=== PATIENT | female | born 1960 | race Caucasian/White ===

== ENCOUNTER 2016-07-02 10:57 | Emergency (ER) | payer SELFPAY ==
[2016-07-02 11:09] VITALS: BP 134/57
[2016-07-02] MEDS ORDERED: Eye Irrigation Solution 30 ML BOTTLE ONE (11:13)
[2016-07-02] MEDS ORDERED: Fluorescein Sodium TOPICAL* 1 MG TEST ONE (11:13)
[2016-07-02] MEDS ORDERED: Tetracaine 0.5% OPTH.SOL 4 ML* 1 DROP BTL ONE (11:13)
--- NOTE | 2016-07-02 11:43 | UC ---
Eye Complaint HPI - HPI Summary HPI Summary: CONTACT LENS STUCK IN LEFT EYE, IRRITATING LEFT EYE, UNABLE TO REMOVE - History of Current Complaint Chief Complaint: UCEye Stated Complaint: LEFT EYE COMPLAINT Time Seen by Provider: 07/02/16 11:16 Hx Obtained From: Patient, Family/Dramatic Art Teacher Onset/Duration: Sudden Onset, Lasting Hours, Still Present Location of Injury: Conjunctiva, Globe Character: Dull, Foreign Body Sensation Aggravating Factor(s): Contact Lens Alleviating Factor(s): Nothing Associated Signs And Symptoms: Positive: Drainage (Clear) Related History: Foreign Body - Risk Factors Penetrating Injury Risk Factor: Negative Globe Rupture Risk Factors: Negative Acute Glaucoma Risk Factors: Negative Optic Artery Occlusion Risk Factors: Negative - Allergies/Home Medications Allergies/Adverse Reactions: Allergies Allergy/AdvReac Type Severity Reaction Status Date / Time No Known Allergies Allergy Verified 07/02/16 11:09 Home Medications: Home Medications Atenolol TAB* [Tenormin TAB* 25 MG] 25 mg PO DAILY 07/02/16 [History Confirmed 07/02/16] Citalopram TAB* [CeleXA TAB*] 20 mg PO DAILY 07/02/16 [History Confirmed ] Hydroxychloroquine TAB* [Plaquenil TAB*] 200 mg PO BID 07/02/16 [History Confirmed 07/02/16] Ibuprofen TAB* [Motrin TAB* 800 MG] 800 mg PO ONCE 07/02/16 [History Confirmed 07/02/16] Rosuvastatin (NF) [Crestor (NF)] 10 mg PO DAILY 07/02/16 [History Confirmed ] PMH/Surg Hx/FS Hx/Imm Hx Previously Healthy: Yes Cardiovascular History Of: Reports: Hypertension - Surgical History Surgical History: Yes Surgery Procedure, Year, and Place: tubal. hysterectomy. right carpal tunnel. arthroscopy both knees. eyes as a child - Family History Known Family History: Negative: Diabetes - Social History Occupation: Employed Full-time Lives: With Family Alcohol Use: Occasionally Substance Use Type: None Smoking Status (MU): Never Smoked Tobacco - Immunization History Most Recent Influenza Vaccination: [id number] Review of Systems Constitutional: Negative Skin: Negative Eyes: Drainage, Other - CONTECT LENS IN EYE ENT: Negative Respiratory: Negative Cardiovascular: Negative Gastrointestinal: Negative Genitourinary: Negative Motor: Negative Neurovascular: Negative Musculoskeletal: Negative Neurological: Negative Psychological: Negative All Other Systems Reviewed And Are Negative: Yes Physical Exam Triage Information Reviewed: Yes Appearance: Well-Appearing, No Pain Distress, Well-Nourished Vital Signs: Initial Vital Signs Temp 98.2 F 07/02/16 11:03 Pulse 67 07/02/16 11:03 Resp 16 07/02/16 11:03 BP 134/57 07/02/16 11:03 Pulse Ox 100 07/02/16 11:03 Eyes: Positive: Other: - CONTECT LENS SUCESSFULLY REMOVED; COREAL ABRASION/ FLUOROSCEIN UPTAKE AT 1 OCLOCK TO 7 OCLOCK ENT Exam: Normal ENT: Positive: Normal ENT inspection, Hearing grossly normal, Pharynx normal, TMs normal Dental Exam: Normal Neck exam: Normal Neck: Positive: Supple, Nontender, No Lymphadenopathy Respiratory Exam: Normal Respiratory: Positive: Chest non-tender, Lungs clear, Normal breath sounds, No respiratory distress, No accessory muscle use Cardiovascular Exam: Normal Cardiovascular: Positive: RRR Abdominal Exam: Normal Abdomen Description: Positive: Nontender, No Organomegaly Musculoskeletal Exam: Normal Musculoskeletal: Positive: Strength Intact Neurological Exam: Normal Psychological Exam: Normal Skin Exam: Normal Eye Complaint Course/Dx - Differential Dx/Diagnosis Differential Diagnosis/HQI/PQRI: Corneal Abrasion, Foreign Body Provider Diagnoses: CONTACT LENS SUCCESSFULLY REMOVED FROM LEFT EYE. CORNEAL ABRASION LEFT EYE Discharge - Discharge Plan Condition: Stable Disposition: HOME Prescriptions: Tobramycin 0.3% OPHTH.CARLOS* 1 drop LEFT EYE Q4H #1 btl Patient Education Materials: Corneal Abrasion (ED), Eye Foreign Body (ED) Referrals: Keke Horner PA [Primary Care Provider] -
== END 2016-07-02 11:46 | disposition home or self-care (01) ==
LOC: UCCORT 10:57
DX: H18.822 Corneal disorder due to contact lens, left eye (principal)
CPT/HCPCS: 99212; A9270-GY; G0463

== ENCOUNTER 2018-06-11 16:06 | Emergency (ER) | payer MEDICAID ==
[2018-06-11 16:20] VITALS: BP 156/76
--- NOTE | 2018-06-11 16:29 | UC ---
General HPI - HPI Summary HPI Summary: BOIL ABOVE R EAR WHERE HER EYE GLASS ARM RUBS X 10 DAYS. 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 NO FEVER - History of Current Complaint Chief Complaint: UCSkin Stated Complaint: SKIN CONCERN Time Seen by Provider: 06/11/18 16:19 Hx Obtained From: Patient Onset/Duration: Gradual Onset Timing: Constant Pain Intensity: 8 Associated Signs & Symptoms: Negative: Fever - Allergy/Home Medications Allergies/Adverse Reactions: Allergies Allergy/AdvReac Type Severity Reaction Status Date / Time No Known Allergies Allergy Verified 06/11/18 16:16 Home Medications: Home Medications Ibuprofen TAB* [Motrin TAB* 800 MG] 1 tab BID PRN 06/11/18 [History Confirmed ] PMH/Surg Hx/FS Hx/Imm Hx Endocrine History: Dyslipidemia Cardiovascular History: Hypertension Psychological History: Depression - Surgical History Surgical History: Yes Surgery Procedure, Year, and Place: tubal. hysterectomy. right carpal tunnel. arthroscopy both knees; LEFT KNEE X2. eyes as a child - Family History Known Family History: Negative: Diabetes - Social History Alcohol Use: Occasionally Substance Use Type: None Smoking Status (MU): Never Smoked Tobacco - Immunization History Most Recent Influenza Vaccination: [id number] Review of Systems All Other Systems Reviewed And Are Negative: Yes Constitutional: Positive: Negative Eyes: Positive: Negative ENT: Positive: Negative Respiratory: Positive: Negative Cardiovascular: Positive: Negative Gastrointestinal: Positive: Negative Genitourinary: Positive: Negative Motor: Positive: Negative Neurovascular: Positive: Negative Musculoskeletal: Positive: Negative Neurological: Positive: Negative Psychological: Positive: Negative Physical Exam Triage Information Reviewed: Yes Appearance: Well-Appearing Vital Signs: Initial Vital Signs Temp 98.1 F 06/11/18 16:17 Pulse 74 06/11/18 16:17 Resp 20 06/11/18 16:17 BP 156/76 06/11/18 16:17 Pulse Ox 99 06/11/18 16:17 Vital Signs Reviewed: Yes Eyes: Positive: Conjunctiva Clear ENT: Positive: Normal ENT inspection Neck: Positive: Supple, Nontender, No Lymphadenopathy Respiratory: Positive: Lungs clear, Normal breath sounds Cardiovascular: Positive: RRR, No Murmur Abdomen Description: Positive: Nontender Bowel Sounds: Positive: Present Musculoskeletal: Positive: ROM Intact Neurological: Positive: Alert Psychological: Positive: Age Appropriate Behavior Skin Exam: Normal, Other - 3CM AREA OF ERYTHEMA WITH MIDL SWELLING ABOVE R EAR WITH A CENTRAL BLACKHEAD. ARE VERY TENDER TO TOUCH AND MIDL CENTRAL FLUCTUANCE. Course/Dx - Course Course Of Treatment: PROCEDURE: TIME OUT DONE. SITE PREP BETADINE. VERY SMALL AREA INJECTED WITH 1% LIDOCAINE USING A 30G NEEDLE(AREA LIMITED BY PT TOLERANCE) . TIP #11 BLADE USED TO MAKE A SMALL STAB INCISION(LIMITED BY LOCAL ANESTHETIC) . SMALL BUBBLE OF PUSS DRAINED. CULTURE OBTAINED. SITE IRRIGATED WITH STERILE NACL. SMALL IODOFORM GAUZE PACK PLACED. ONLY SCANT BLEEDING. STERILE TECHNIQUE USED. LOCAL AREA STILL RED THUS WILL COVER WITH AN ANTIBIOTIC. - Diagnoses Provider Diagnosis: Abscess of scalp Discharge - Sign-Out/Discharge Documenting (check all that apply): Patient Departure All imaging exams completed and their final reports reviewed: No Studies - Discharge Plan Condition: Stable Disposition: HOME Prescriptions: Sulfamethox/Trimethoprim DS* [Bactrim DS 800/160 TAB*] 1 tab PO BID 10 Days #20 tab Patient Education Materials: Abscess Incision and Drainage (DC) Referrals: Keke Horner PA [Primary Care Provider] - Jude Brantley [Medical Doctor] - Additional Instructions: FOLLOW UP WITH YOUR PRIMARY CARE OR THE SURGEON IN 2 DAYS FOR A RECHECK. FOLLOW UP SOONER FOR ANY WORSENING. - Billing Disposition and Condition Condition: STABLE Disposition: Home - Attestation Statements Provider Attestation: I was available for consult. This patient was seen by the TRISTIAN. The patient was not presented to, seen by, or examined by me. -Baylee
[2018-06-11] MEDS ORDERED: Lidocaine 1% MPF* 2 ML VIAL INJ ONE (16:31)
[2018-06-11] MEDS ORDERED: Ibuprofen ADULT LIQ* 600 MG/30 ML UDC PO ONE (17:13)
== END 2018-06-11 17:24 | disposition home or self-care (01) ==
LOC: UCCORT 16:06
DX: L02.811 Cutaneous abscess of head [any part, except face] (principal); I10 Essential (primary) hypertension
CPT/HCPCS: 10060; 87070; 87205; 87640; 87641; 99212; A9270-GY; G0463

== ENCOUNTER 2021-07-13 10:32 | Observation (INO) ==
[~2021-07-13 10:32] MED LIST: Buffered Lidocaine 1% SYRIN 1 ml INTRADERM ONE; DiMENhydriNATE IV 50 mg/ml 1 ml VIAL IV PUSH PRN; Lactated Ringers 1000 ml BAG 1,000 ML IV SCH; Naloxone 0.4 mg VIAL 0.4 mg/ml 1 ml VIAL IV PRN; Propofol 10 MG/ML 20 ML BTL ONE; fentaNYL 100 mcg/2 ml 50 MCG/ML VIAL IV PRN
[2021-07-13] MEDS ORDERED: Lidocaine 2% PF 5 ML VIAL ONE ×2 (10:34→12:45)
[2021-07-13] MEDS ORDERED: Ketamine HCL 50 mg/ml 10 ml VIAL (500 MG) ONE (10:35)
[2021-07-13] MEDS ORDERED: ceFAZolin 2 GM in NS PREMIX 2 GM/100 ML BAG IVPB ONE (11:10)
[2021-07-13] MEDS ORDERED: ROPIVACAINE 5 MG/ML 30 ML BTL (0.5%) ONE (12:45)
[2021-07-13] MEDS ORDERED: Midazolam 2 mg/2 ml VIAL 1 mg/ml 2 ml VIAL (2 mg) ONE ×3 (12:45→14:45)
[2021-07-13] MEDS ORDERED: Dexmedetomidine 200 mcg/2 ml 2 ml VIAL (200 mcg) ONE (12:45)
[2021-07-13] MEDS ORDERED: Phenylephrine 40 mcg/mL 10mL (400mcg) SYRINGE ONE ×3 (13:44→15:16)
[2021-07-13] MEDS ORDERED: Sterile Water for Inj 10 ML ONE (13:54)
[2021-07-13] MEDS ORDERED: Glycopyrrolate IV 0.2 MG/ML 1 ML VIAL ONE (14:21)
[2021-07-13] MEDS ORDERED: Ropivacaine 5 MG/ML 20 ML VIAL 0.5% (100 MG) ONE (14:29)
[2021-07-13] MEDS ORDERED: Magnesium Hydroxide LIQ 30 ML UDC PO PRN (14:39)
[2021-07-13] MEDS ORDERED: Ondansetron 4 mg VIAL 2 MG/ML 2 ml VIAL IV PRN (14:39)
[2021-07-13] MEDS ORDERED: Ondansetron ODT 4 mg TAB 4 MG TAB PO PRN (14:39)
[2021-07-13] MEDS ORDERED: Lactulose 30 ml UDC PO PRN (14:39)
[2021-07-13] MEDS ORDERED: diPHENhydraMINE IV 50 MG/ML 1 ml VIAL (BENADRYL) IV PRN (14:39)
[2021-07-13] MEDS ORDERED: diPHENhydraMINE 25 mg TAB PO PRN (14:39)
[2021-07-13] MEDS ORDERED: Morphine 2 MG/ML SYRINGE IV PRN (14:39)
[2021-07-13] MEDS ORDERED: Ondansetron 4 mg VIAL 2 MG/ML 2 ml VIAL ONE (15:26)
[2021-07-13] MEDS: Magnesium Hydroxide LIQ 30 ML UDC PO SCH (21:10)
[2021-07-13] MEDS: DULoxetine DR 30 mg CAP PO SCH (21:10)
[2021-07-13] MEDS: ceFAZolin VIAL 1 GM in NS 0.9% 50 ML 50 ML IVPB SCH (22:06)
[2021-07-14] MEDS: Lactated Ringers 1000 ml BAG 1,000 ML IV SCH ×2 (04:10→06:17)
[2021-07-14] MEDS: ceFAZolin VIAL 1 GM in NS 0.9% 50 ML 50 ML IVPB SCH ×2 (06:02→13:33)
[2021-07-14 06:45] LABS: Hematocrit 32 % (35-47); Hemoglobin 11.3 g/dL (12.0-16.0); Mean Platelet Volume 8.7 fL (7.4-10.4); Platelet Count 150 10^3/uL (150-450)
[2021-07-14 06:59] LABS: Calcium 8.7 mg/dL (8.6-10.3); Potassium 4.6 mmol/L (3.5-5.0); eGFR CKD-EPI 92.6 (>60)
[2021-07-14] MEDS: DULoxetine DR 30 mg CAP PO SCH (08:21)
[2021-07-14] MEDS: Magnesium Hydroxide LIQ 30 ML UDC PO SCH (08:22)
[2021-07-14] MEDS ORDERED: Vitamin THERAPEUTIC TAB PO SCH (09:00)
[2021-07-14 12:12] VITALS: BP 117/73
== END 2021-07-14 15:38 | disposition home or self-care (01) ==
LOC: AA 10:32 → INTOOBSV 10:32 → SSU 17:46
PROVIDERS: ADMIT Orthopaedic Surgery Adult Reconstructive Orthopaedic Surgery; ATTEND Orthopaedic Surgery Adult Reconstructive Orthopaedic Surgery

== ENCOUNTER 2023-03-13 06:34 | Observation (INO) ==
[~2023-03-13 06:34] MED LIST changes: -DiMENhydriNATE IV 50 mg/ml 1 ml VIAL IV PUSH PRN; -Naloxone 0.4 mg VIAL 0.4 mg/ml 1 ml VIAL IV PRN; -Propofol 10 MG/ML 20 ML BTL ONE; -fentaNYL 100 mcg/2 ml 50 MCG/ML VIAL IV PRN
[2023-03-13] MEDS ORDERED: ceFAZolin 2 GM PREMIX 2 GM/50 ML BAG ONE (07:02)
[2023-03-13] MEDS ORDERED: Buffered Lidocaine 1% SYRIN 1 ml ONE (07:02)
[2023-03-13] MEDS ORDERED: ROPIVACAINE 5 MG/ML 30 ML BTL (0.5%) ONE (08:14)
[2023-03-13] MEDS ORDERED: fentaNYL 100 mcg/2 ml 50 MCG/ML VIAL ONE (08:14)
[2023-03-13] MEDS ORDERED: Midazolam 5 mg/5 ml VIAL 1 mg/ml 5 ml VIAL (5 mg) ONE (08:14)
[2023-03-13] MEDS ORDERED: Famotidine IV 10 MG/ML 2 ml VIAL (20 mg) IV ONE (08:24)
[2023-03-13] MEDS ORDERED: Famotidine IV 10 MG/ML 2 ml VIAL (20 mg) ONE (08:32)
[2023-03-13 08:43] LABS: Rapid COVID-19 Molecular Undetected (Undetected)
[2023-03-13] MEDS ORDERED: Ondansetron 4 mg VIAL 2 MG/ML 2 ml VIAL ONE (10:23)
[2023-03-13] MEDS ORDERED: Dexamethasone IV 4 MG/ML VIAL 1 ml VIAL ONE (10:23)
[2023-03-13] MEDS ORDERED: Lidocaine 2% PF 5 ML VIAL ONE (10:23)
[2023-03-13] MEDS ORDERED: Bupivacaine 0.5% SDV PF 30ML VIAL ONE ×2 (10:39→11:32)
[2023-03-13] MEDS ORDERED: Vancomycin 1,000 MG VIAL ONE (10:40)
[2023-03-13] MEDS ORDERED: Acetaminophen IV 1 GM/100ML 1,000 MG/100 ML BAG IV ONE (12:17)
[2023-03-13] MEDS ORDERED: Phenylephrine 40 mcg/mL 10mL (400mcg) SYRINGE ONE (12:17)
[2023-03-13] MEDS ORDERED: Phenylephrine IV 10 MG/ML 1 ml VIAL ONE (12:23)
[2023-03-13] MEDS ORDERED: Propofol 10 MG/ML 20 ML BTL ONE ×3 (12:25→13:37)
[2023-03-13] MEDS ORDERED: fentaNYL 100 mcg/2 ml 50 MCG/ML VIAL IV PRN (12:40)
[2023-03-13] MEDS ORDERED: Naloxone 0.4 mg VIAL 0.4 mg/ml 1 ml VIAL IV PRN (12:40)
[2023-03-13] MEDS ORDERED: HYDROmorphone 1 MG/1 ML SYRINGE IV PRN (12:40)
[2023-03-13] MEDS ORDERED: Magnesium Hydroxide LIQ 30 ML UDC PO PRN (19:01)
[2023-03-13] MEDS ORDERED: Morphine 2 MG/ML SYRINGE IV PRN (19:01)
[2023-03-13] MEDS ORDERED: Ondansetron 4 mg VIAL 2 MG/ML 2 ml VIAL IV PRN (19:01)
[2023-03-13] MEDS ORDERED: Ondansetron ODT 4 mg TAB 4 MG TAB PO PRN (19:01)
[2023-03-13] MEDS ORDERED: Lactulose 30 ml UDC PO PRN (19:01)
[2023-03-13] MEDS ORDERED: Polyethylene Glycol 3350 17 GM PACKET PO PRN (19:01)
[2023-03-13] MEDS: Lactated Ringers 1000 ml BAG 1,000 ML IV SCH (19:45)
[2023-03-13] MEDS: Magnesium Hydroxide LIQ 30 ML UDC PO SCH (20:26)
[2023-03-13] MEDS: ceFAZolin 1 GM ADVAN 1 GM in NS 0.9% 50 ML 50 ML IVPB SCH (20:27)
[2023-03-14] MEDS: Lactated Ringers 1000 ml BAG 1,000 ML IV SCH (02:47)
[2023-03-14] MEDS: ceFAZolin 1 GM ADVAN 1 GM in NS 0.9% 50 ML 50 ML IVPB SCH ×2 (05:09→11:33)
[2023-03-14 06:27] LABS: Hemoglobin 11.1 g/dL (11.5-14.3); Mean Platelet Volume 8.9 fL (7.5-11.2); Platelet Count 172 10^3/uL (150-450)
[2023-03-14 06:59] LABS: Calcium 8.7 mg/dL (8.6-10.3); Creatinine, Serum 0.8 mg/dL (0.51-0.95); Potassium 4.3 mmol/L (3.5-5.0); eGFR CKD-EPI 83.8 (>60)
[2023-03-14] MEDS ORDERED: Vitamin THERAPEUTIC TAB PO SCH (09:00)
[2023-03-14 10:59] VITALS: BP 144/79
[2023-03-14] MEDS: Magnesium Hydroxide LIQ 30 ML UDC PO SCH (11:22)
== END 2023-03-14 16:00 | disposition home or self-care (01) ==
LOC: SDS 06:34 → SSU 06:34 → EDSTATUS 09:45
PROVIDERS: ADMIT Orthopaedic Surgery; ATTEND Orthopaedic Surgery